=== PATIENT | male | born 1955 | race Caucasian/White ===

== ENCOUNTER → 2016-09-29 | Outpatient (CLI) | payer BC | END | disposition home or self-care (01) | LOC: RAD 14:22 | PROVIDERS: ATTEND Internal Medicine | DX: Z01.810 Encounter for preprocedural cardiovascular examination (principal); J98.4 Other disorders of lung; M25.561 Pain in right knee; G89.29 Other chronic pain; Z87.828 Personal history of other (healed) physical injury and trauma | CPT/HCPCS: 71020; 93005 ==